=== PATIENT | male | born 1990 | race Caucasian/White ===

== ENCOUNTER 2016-10-24 04:47 | Emergency (ER) | payer SELFPAY ==
[2016-10-24] MEDS ORDERED: IBUPROFEN 800 MG TABLET ONE (05:13)
[2016-10-24] MEDS ORDERED: PREDNISONE 20 MG TABLET ONE (05:13)
[2016-10-24] MEDS ORDERED: CLINDAMYCIN HCL 150 MG CAPSULE ONE (05:13)
== END 2016-10-24 05:30 | disposition home or self-care (01) ==
LOC: ED 04:47
DX: K04.7 Periapical abscess without sinus (principal); K02.9 Dental caries, unspecified; F17.210 Nicotine dependence, cigarettes, uncomplicated
CPT/HCPCS: 99283 ×2; A9270 ×2; J7512